=== PATIENT | female | born 1995 | race Caucasian/White ===

== ENCOUNTER 2024-05-16 11:33 | Outpatient (REF) | payer MEDICAID, SELFPAY ==
--- NOTE | 2024-05-16 11:40 | PAPFT_PTH ---
PATIENT: Nicole Hayes LOC: [facility] U#:[id number] AGE/SX: 29/F ROOM: RE05/16/[address]: Caroline Angulo MD : [id number] BED: DIS: 05/16/2024 SPEC #: [id number] RECD: 05/16/24 13:02 STATUS: WINNIE REKrysta #: [id number] JACQUELINE: 05/16/24 11:[address]: Caroline Angulo DEPT: [facility] Cytology RECD BY: Haritha Purvis ENTERED: 05/16/24 13:02 SP TYPE: PAPFT CORBY DR: Unknown,Unknown Tissues: 1 - CX/ENDOCX FOR PAP SMEARS Procedures: PAP THIN PREP/[facility] Screening HPV DNA PROBE Comments: [id number] (HPV 16 & 18/45)
== END 2024-05-16 11:34 | disposition home or self-care (01) ==
LOC: LBN 11:33
PROVIDERS: Visit Provider Obstetrics & Gynecology
DX: Z12.4 Encounter for screening for malignant neoplasm of cervix (principal)
CPT/HCPCS: 88142; 87624